=== PATIENT | female | born 1950 | race Caucasian/White ===

== ENCOUNTER → 2018-08-02 13:29 | Oncology outpatient (ONC) | payer MEDICARE, OTHER, SELFPAY ==
[2018-06-02] MEDS: PEGFILGRASTIM 6 MG/0.6 ML SYR SUBCUT (18:06)
--- NOTE | 2018-06-02 18:11 | PC.NURSE ---
pt in at 1800 for neulasta injection. ambulated up to ac floor with family member. gait steady, pt A&O. tolerated shot well.
[2018-06-23] MEDS: PEGFILGRASTIM 6 MG/0.6 ML SYR SUBCUT (17:02)
--- NOTE | 2018-06-23 17:10 | PC.NURSE ---
Addendum entered by Flaca Lyle R.N. 06/23/18 17:13: 139/64, HR 51, RR 16. 97.9. Original Note: 1700: Patient arrived to to receive Neulasta SQ inj x 1. Patient awake, alert, ambulated to unit independently accompanied by Armin with steady gait. VSS. No localized reaction post SQ administration. Reports receiving Neulasta 4 times in the past. Questions answered.
[2018-07-14] MEDS: PEGFILGRASTIM-JMDB 6 MG/0.6 ML SYRINGE SUBCUT (16:13)
--- NOTE | 2018-07-14 16:17 | PC.NURSE ---
pt ambulated up to ac room 201 w/family member. Injection pushed slowly, pt tolerated well.
[2018-08-04 14:07] VITALS: BP 120/59; PULSE 61; RESP 16; TEMP 36.3; O2SAT 99
[2018-08-04] MEDS: PEGFILGRASTIM-JMDB 6 MG/0.6 ML SYRINGE SUBCUT (14:13)
== END ==
LOC: ONC 13:35
PROVIDERS: PCP Family Medicine; Visit Provider Internal Medicine Hematology & Oncology
DX: C18.9 Malignant neoplasm of colon, unspecified (principal)
CPT/HCPCS: 96372; J2505; Q5108